=== PATIENT | male | born 1975 | race American Indian/Alaskan Native ===

== ENCOUNTER 2022-03-19 09:36 | Inpatient (IN) | payer OTHER ==
[2022-03-19 10:22] VITALS: BMI 29.7
[2022-03-19] MEDS ORDERED: chlordiazePOXIDE HCL 25 MG CAPSULE PO PRN (11:05)
[2022-03-19] MEDS ORDERED: LOPERAMIDE HCL 2 MG CAPSULE PO PRN (11:08)
[2022-03-19] MEDS ORDERED: ONDANSETRON *ODT* 4 MG TABLET SL PRN (11:08)
[2022-03-19] MEDS ORDERED: IBUPROFEN 600 MG TABLET (FP) PO PRN (11:08)
[2022-03-19] MEDS ORDERED: BENZOCAINE/MENTHOL (CHLORASEPTIC ) LOZENGE MM PRN (11:08)
[2022-03-19] MEDS ORDERED: MAGNESIUM CITRATE 300 ML BOTTLE PO PRN (11:08)
[2022-03-19] MEDS ORDERED: BISMUTH SUBSALICYLATE 524 MG/30 ML PO PRN (11:08)
[2022-03-19] MEDS ORDERED: NALOXONE HCL (KLOXXADO) 8 MG SPRAY NS PRN (11:08)
[2022-03-19] MEDS ORDERED: MAG HYDROX/AL HYDROX/SIMETH 30 ML UNIT-DOSE CUP PO PRN (11:08)
[2022-03-19] MEDS ORDERED: IBUPROFEN 400 MG TABLET (FP) PO PRN (11:08)
[2022-03-19] MEDS ORDERED: MAGNESIUM HYDROX 2400MG/30ML ORAL SUSPENSION 30 ML CUP PO PRN (11:08)
[2022-03-19] MEDS ORDERED: NICOTINE 10 MG CARTRIDGE (INHALER) IH PRN (11:08)
[2022-03-19] MEDS ORDERED: ACETAMINOPHEN 325 MG TABLET (FP) PO PRN ×2 (11:08)
[2022-03-19] MEDS ORDERED: DICYCLOMINE HCL 10 MG CAPSULE PO PRN (11:08)
[2022-03-19] MEDS ORDERED: cloNIDine HCL 0.1 MG TABLET PO ONE ×2 (11:15→19:55)
[2022-03-19] MEDS ORDERED: amLODIPine BESYLATE 10 MG TABLET (FP) PO ONE (11:16)
[2022-03-19] MEDS ORDERED: amLODIPine BESYLATE 5 MG TABLET (FP) ONE (11:25)
[2022-03-19] MEDS ORDERED: chlordiazePOXIDE HCL 25 MG CAPSULE ONE (11:26)
[2022-03-19] MEDS: chlordiazePOXIDE HCL 25 MG CAPSULE PO SCH ×3 (11:29→22:38)
[2022-03-19] MEDS: hydrOXYzine PAMOATE 25 MG CAPSULE (FP) PO PRN (12:16)
[2022-03-19] MEDS ORDERED: METOPROLOL TARTRATE 50 MG TABLET (FP) PO SCH (12:45)
[2022-03-19] MEDS: metFORMIN HCL 500 MG TABLET (FP) PO SCH (17:38)
[2022-03-19] MEDS: glipiZIDE 5 MG TABLET (FP) PO SCH (17:39)
[2022-03-19] MEDS: ATORVASTATIN CA 80 MG TABLET (FP) PO SCH (22:38)
[2022-03-19] MEDS: THIAMINE HCL 100 MG TABLET (FP) PO SCH (22:38)
[2022-03-19] MEDS: MELATONIN 5 MG TABLETS PO SCH (22:39)
[2022-03-20] MEDS: glipiZIDE 5 MG TABLET (FP) PO SCH ×2 (06:11→17:51)
[2022-03-20] MEDS: metFORMIN HCL 500 MG TABLET (FP) PO SCH ×2 (06:11→17:51)
[2022-03-20] MEDS: chlordiazePOXIDE HCL 25 MG CAPSULE PO SCH ×4 (06:12→22:12)
[2022-03-20] MEDS: PRENATAL VITAMINS W/ FOLIC ACID TABLET (FP) PO SCH (10:34)
[2022-03-20] MEDS: METOPROLOL TARTRATE 50 MG TABLET (FP) PO SCH ×2 (10:35→22:12)
[2022-03-20] MEDS: amLODIPine BESYLATE 10 MG TABLET (FP) PO SCH (10:35)
[2022-03-20 11:28] LABS: HEMATOCRIT 37.4 % (35.4-49); HEMOGLOBIN 12.2 GM/dL (11.7-16.9); MCH 27.7 pg (25.7-33.7); MCHC 32.8 g/dl (32.0-35.9); MEAN CELL VOLUME 84.6 fl (80-96); MEAN PLT VOLUME 8.7 fl (7.5-11.1); PLATELET COUNT 249 10^3/uL (134-434); RBC 4.42 M/mm3 (4.00-5.60); RDW 22.1 % (11.9-15.9); WHITE BLOOD COUNT 5.7 K/mm3 (4.0-10.0)
[2022-03-20 11:41] LABS: CALCIUM 7.8 mg/dL (8.5-10.1)
[2022-03-20 11:42] LABS: ALBUMIN 3.8 g/dl (3.4-5.0); BLOOD UREA NITROGEN 5.4 mg/dL (7-18)
[2022-03-20 11:45] LABS: CREATININE 0.7 mg/dL (0.55-1.3)
[2022-03-20 11:46] LABS: BILIRUBIN,TOTAL 1.2 mg/dL (0.2-1); TOT PROT 7.8 g/dl (6.4-8.2)
[2022-03-20] MEDS ORDERED: TRIAMCINOLONE ACET 0.1% CREAM 15 GM TUBE TP SCH (15:30)
[2022-03-20] MEDS: INSULIN SLIDING SCALE (NOVOLOG) 1 VIAL SQ SCH (17:54)
[2022-03-20] MEDS: ATORVASTATIN CA 80 MG TABLET (FP) PO SCH (22:12)
[2022-03-20] MEDS: MELATONIN 5 MG TABLETS PO SCH (22:12)
[2022-03-20] MEDS: THIAMINE HCL 100 MG TABLET (FP) PO SCH (22:13)
[2022-03-20] MEDS: TRIAMCINOLONE ACET 0.1% CREAM 15 GM TUBE TP SCH (22:53)
[2022-03-21] MEDS: hydrOXYzine PAMOATE 25 MG CAPSULE (FP) PO PRN (05:57)
[2022-03-21] MEDS: chlordiazePOXIDE HCL 25 MG CAPSULE PO SCH ×4 (05:57→22:14)
[2022-03-21] MEDS: metFORMIN HCL 500 MG TABLET (FP) PO SCH ×2 (06:06→17:59)
[2022-03-21] MEDS: glipiZIDE 5 MG TABLET (FP) PO SCH ×2 (06:06→17:59)
[2022-03-21] MEDS: INSULIN SLIDING SCALE (NOVOLOG) 1 VIAL SQ SCH ×2 (06:56→18:08)
[2022-03-21] MEDS: TRIAMCINOLONE ACET 0.1% CREAM 15 GM TUBE TP SCH ×2 (10:13→10:23)
[2022-03-21] MEDS: METOPROLOL TARTRATE 50 MG TABLET (FP) PO SCH ×2 (10:22→22:14)
[2022-03-21] MEDS: amLODIPine BESYLATE 10 MG TABLET (FP) PO SCH (10:22)
[2022-03-21] MEDS: PRENATAL VITAMINS W/ FOLIC ACID TABLET (FP) PO SCH (10:22)
[2022-03-21] MEDS: METHOCARBAMOL 500 MG TABLET PO PRN (10:23)
[2022-03-21] MEDS: MELATONIN 5 MG TABLETS PO SCH (22:13)
[2022-03-21] MEDS: ATORVASTATIN CA 80 MG TABLET (FP) PO SCH (22:13)
[2022-03-21] MEDS: THIAMINE HCL 100 MG TABLET (FP) PO SCH (22:14)
[2022-03-22] MEDS ORDERED: chlordiazePOXIDE HCL 10 MG CAPSULE PO PRN
[2022-03-22] MEDS: glipiZIDE 5 MG TABLET (FP) PO SCH ×2 (06:10→17:01)
[2022-03-22] MEDS: chlordiazePOXIDE HCL 10 MG CAPSULE PO SCH ×4 (06:10→22:18)
[2022-03-22] MEDS: metFORMIN HCL 500 MG TABLET (FP) PO SCH ×2 (06:10→17:01)
[2022-03-22] MEDS: INSULIN SLIDING SCALE (NOVOLOG) 1 VIAL SQ SCH ×2 (06:11→17:02)
[2022-03-22] MEDS: PRENATAL VITAMINS W/ FOLIC ACID TABLET (FP) PO SCH (10:19)
[2022-03-22] MEDS: TRIAMCINOLONE ACET 0.1% CREAM 15 GM TUBE TP SCH ×2 (10:19→22:18)
[2022-03-22] MEDS: amLODIPine BESYLATE 10 MG TABLET (FP) PO SCH (10:19)
[2022-03-22] MEDS: METOPROLOL TARTRATE 50 MG TABLET (FP) PO SCH ×2 (10:19→22:16)
[2022-03-22 11:31] LABS: ALBUMIN 3.8 g/dl (3.4-5.0); BLOOD UREA NITROGEN 12.6 mg/dL (7-18); CALCIUM 8.3 mg/dL (8.5-10.1)
[2022-03-22 11:33] LABS: BILIRUBIN,TOTAL 0.4 mg/dL (0.2-1)
[2022-03-22 11:34] LABS: CREATININE 0.8 mg/dL (0.55-1.3); TOT PROT 7.7 g/dl (6.4-8.2)
[2022-03-22] MEDS: THIAMINE HCL 100 MG TABLET (FP) PO SCH (22:15)
[2022-03-22] MEDS: MELATONIN 5 MG TABLETS PO SCH (22:15)
[2022-03-22] MEDS: ATORVASTATIN CA 80 MG TABLET (FP) PO SCH (22:16)
[2022-03-23] MEDS: chlordiazePOXIDE HCL 10 MG CAPSULE PO SCH ×2 (06:02→17:03)
[2022-03-23] MEDS: glipiZIDE 5 MG TABLET (FP) PO SCH ×2 (06:02→17:03)
[2022-03-23] MEDS: metFORMIN HCL 500 MG TABLET (FP) PO SCH ×2 (06:03→17:03)
[2022-03-23] MEDS: INSULIN SLIDING SCALE (NOVOLOG) 1 VIAL SQ SCH ×2 (06:03→18:07)
[2022-03-23] MEDS: TRIAMCINOLONE ACET 0.1% CREAM 15 GM TUBE TP SCH ×3 (10:36→23:01)
[2022-03-23] MEDS: amLODIPine BESYLATE 10 MG TABLET (FP) PO SCH (10:37)
[2022-03-23] MEDS: hydrOXYzine PAMOATE 25 MG CAPSULE (FP) PO PRN ×2 (10:37→22:05)
[2022-03-23] MEDS: PRENATAL VITAMINS W/ FOLIC ACID TABLET (FP) PO SCH (10:37)
[2022-03-23] MEDS: METOPROLOL TARTRATE 50 MG TABLET (FP) PO SCH ×2 (10:37→22:06)
[2022-03-23] MEDS: METHOCARBAMOL 500 MG TABLET PO PRN (10:37)
[2022-03-23] MEDS: ATORVASTATIN CA 80 MG TABLET (FP) PO SCH (22:05)
[2022-03-23] MEDS: MELATONIN 5 MG TABLETS PO SCH (22:06)
[2022-03-23] MEDS: THIAMINE HCL 100 MG TABLET (FP) PO SCH (22:06)
[2022-03-24] MEDS ORDERED: chlordiazePOXIDE HCL 10 MG CAPSULE PO ONE (05:00)
[2022-03-24 05:43] VITALS: TEMP 97.3
[2022-03-24] MEDS: metFORMIN HCL 500 MG TABLET (FP) PO SCH (06:09)
[2022-03-24] MEDS: glipiZIDE 5 MG TABLET (FP) PO SCH (06:09)
[2022-03-24] MEDS: INSULIN SLIDING SCALE (NOVOLOG) 1 VIAL SQ SCH (07:37)
[2022-03-24 09:09] VITALS: BP 146/86; PULSE 108; RESP 20
[2022-03-24] MEDS: METOPROLOL TARTRATE 50 MG TABLET (FP) PO SCH (09:41)
[2022-03-24] MEDS: PRENATAL VITAMINS W/ FOLIC ACID TABLET (FP) PO SCH (09:41)
[2022-03-24] MEDS: METHOCARBAMOL 500 MG TABLET PO PRN (09:41)
[2022-03-24] MEDS: TRIAMCINOLONE ACET 0.1% CREAM 15 GM TUBE TP SCH (09:41)
[2022-03-24] MEDS: amLODIPine BESYLATE 10 MG TABLET (FP) PO SCH (09:41)
== END 2022-03-24 10:15 | disposition home or self-care (01) | DRG 775 ==
LOC: YASAS 09:36 → SUATTDRO 09:36 → Y6N 11:17
PROVIDERS: ADMIT Allergy & Immunology; ATTEND Surgery
PROC: HZ2ZZZZ Detoxification Services for Substance Abuse Treatment (ICD-10-PCS; principal; 2022-03-19)
DX: F10.230 Alcohol dependence with withdrawal, uncomplicated (principal); E87.6 Hypokalemia; E78.00 Pure hypercholesterolemia, unspecified; I10 Essential (primary) hypertension; E11.9 Type 2 diabetes mellitus without complications; Z79.4 Long term (current) use of insulin; L40.9 Psoriasis, unspecified; Z91.013 Allergy to seafood
CPT/HCPCS: 36415; 80053; 82962; 85027; 86780; 87811; 93005; 93010; C9803-CS; U0003; U0005